=== PATIENT | male | born 1980 | race African-American/Black ===

== ENCOUNTER 2020-05-11 14:10 | Inpatient (IN) | payer OTHER ==
[~2020-05-11] VITALS: Ht 177.8 cm; Wt 106.1 kg
[~2020-05-11 14:10] MED LIST: ATARAX,VISTARIL50 MG PO; CARBIDOPA/LEVOD1 TA1 PO; ZOFRAN4 MG PO
[2020-05-11 16:00] VITALS: BP 132/70
[2020-05-11 16:20] LABS: URINE AMPHETAMINES < 1000 (1000ng/ml); URINE BARBITURATES < 200 (200ng/ml); URINE BENZODIAZEPINES > 200 (200ng/ml); URINE CANNABINOIDS (THC) < 50 (50ng/ml); URINE COCAINE > 300 (300ng/ml); URINE METHADONE < 300 (300ng/ml); URINE OPIATES > 300 (300ng/ml)
[2020-05-11 16:28] LABS: BILIRUBIN NEGATIVE (NEGATIVE); BLOOD NEGATIVE (NEGATIVE); CLARITY CLEAR (CLEAR); COLOR YELLOW (YELLOW); GLUCOSE NEGATIVE (NEGATIVE); KETONE NEGATIVE (NEGATIVE); LEUKO ESTERASE NEGATIVE (NEGATIVE); NITRITE NEGATIVE (NEGATIVE); PH 6.5 (5.0-9.0); UROBILINOGEN 0.2 E.U./dl (0.2-1.0)
[2020-05-11 16:31] LABS: URINE PHENCYCLIDINE < 25 (25ng/ml)
[2020-05-11 17:05] LABS: BASO % 0.2 % (0.0-1.0); EOS # 0.1 10*3/uL (0.0-0.4); EOS % 1.4 % (1.0-4.0); HEMATOCRIT 38.1 % (42.0-52.0); LYMPH # 2.9 10*3/uL (1.3-4.4); MEAN CELL VOLUME 90.9 fl (80.0-94.0); MEAN CORPUSCULAR HGB 30.3 pg (27.0-31.0); MEAN CORPUSCULAR HGB CONC 33.3 g/dl (33.0-37.0); MEAN PLATELET VOLUME 8.6 fl (9.6-12.3); MONO # 0.5 10*3/uL (0.1-1.0); MONO % 6.2 % (3.0-9.0); NEUT # 4.9 10*3/uL (2.3-7.9); PLATELET COUNT AUTOMATED 224 10*3/uL (130-400); RED BLOOD COUNT 4.19 10*6/uL (4.50-5.90); RED CELL DISTRI WIDTH 12.6 % (0-14.5); WHITE BLOOD COUNT 8.5 10*3/uL (4.8-10.8)
[2020-05-11 17:21] LABS: ALBUMIN 3.3 gm/dl (3.1-4.5); ALKALINE PHOSPHATASE 90 U/L (45-117); BUN 13 mg/dl (7-24); CHLORIDE 99 mmol/L (98-107); CREATININE 0.93 mg/dL (0.70-1.30); POTASSIUM 3.9 mmol/L (3.5-5.1); SGOT/AST 28 IU/L (3-35); SGPT/ALT 32 U/L (12-78); SODIUM 135 mmol/L (136-145); TOTAL PROTEIN 8.2 gm/dL (6.4-8.2)
[2020-05-11 17:26] LABS: ETHYL ALCOHOL < 3.0 mg/dl (<3)
[2020-05-11 20:00] VITALS: BP 147/92
[2020-05-12] VITALS: BP 140/78
[2020-05-12 08:00] VITALS: BP 134/83
[2020-05-12 12:00] VITALS: BP 139/80
[2020-05-12 16:00] VITALS: BP 118/73
[2020-05-12 20:00] VITALS: BP 152/84
[2020-05-13] VITALS: BP 132/75
[2020-05-13 08:00] VITALS: BP 128/83
[2020-05-13 12:00] VITALS: BP 145/99
== END 2020-05-13 14:10 | disposition left against medical advice (07) | DRG 770 ==
LOC: 5E 14:10
PROVIDERS: Internal Medicine; ADMIT Student in an Organized Health Care Education/Training Program
DX: F11.23 Opioid dependence with withdrawal (principal); K21.9 Gastro-esophageal reflux disease without esophagitis; D64.9 Anemia, unspecified; F14.10 Cocaine abuse, uncomplicated; B19.20 Unspecified viral hepatitis C without hepatic coma; F17.210 Nicotine dependence, cigarettes, uncomplicated; F13.10 Sedative, hypnotic or anxiolytic abuse, uncomplicated; Z53.29 Procedure and treatment not carried out because of patient's decision for other reasons; E87.1 Hypo-osmolality and hyponatremia; E78.5 Hyperlipidemia, unspecified; R73.9 Hyperglycemia, unspecified; Z71.6 Tobacco abuse counseling; Z80.8 Family history of malignant neoplasm of other organs or systems